=== PATIENT | male | born 1975 | race Two or more races ===

== ENCOUNTER 2023-11-04 08:09 | Inpatient (IN) | payer MEDICAID, OTHER ==
[~2023-11-04] VITALS: Ht 177.8 cm; Wt 72.7 kg
[2023-11-04 08:39] LABS: Basophils # (auto) 0 10 ^3/uL (0-0.2); Basophils % (auto) 0.4 % (0.0-2.0); Eosinophils # (auto) 0.1 10 ^3/uL (0-0.8); Eosinophils % (auto) 0.9 % (0.0-7.0); Hemoglobin 11.1 g/dL (13.5-17.5); Lymphocytes # (auto) 1.4 10 ^3/uL (0.4-5.4); Mean Corpuscular Volume 78.3 fL (80.0-100.0); White Blood Cell 9.3 10^3/uL (4.4-10.8)
[2023-11-04 08:42] LABS: Hematocrit 35.2 % (41.0-53.0); Lymphocytes % (auto) 15.3 % (10.0-50.0); Mean Corpuscular Hemoglobin 24.7 pg (28.0-32.0); Mean Corpuscular Hgb Conc. 31.6 g/dL (32.0-36.0); Monocytes # (auto) 0.7 10 ^3/uL (0-1.3); Neutrophils % (auto) 75.4 % (37.0-80.0)
[2023-11-04 08:54] LABS: INR 1.04 (0.9-1.15); Partial Thromboplastin Time 25.4 SEC (24.5-34.5); Prothrombin Time 10.9 sec (9.3-11.8)
[2023-11-04 08:56] LABS: Alanine Aminotransferase 23 U/L (7-40); Alkaline Phosphatase 92 U/L (46-116); Anion Gap 7 (5-15); Aspartate Aminotransferase 16 U/L (13-40); BUN/Creatinine Ratio 22.5 (10.0-20.0); Blood Urea Nitrogen 16 mg/dL (9-23); Calcium 8.9 mg/dL (8.5-10.1); Carbon Dioxide 27 mmol/L (20-30); Chloride 109 mmol/L (98-107); Glucose 92 mg/dL (74-106); Sodium 143 mmol/L (136-145)
[2023-11-04 08:57] LABS: Bilirubin, Total 0.4 mg/dL (0.2-1.0); Total Protein 6.8 g/dL (5.7-8.2)
[2023-11-04 09:11] LABS: Urine Bacteria NONE SEEN /hpf (None Seen); Urine Blood TRACE /uL (Negative); Urine Clarity Clear (Clear); Urine Color Colorless (Yellow); Urine Mucus FEW (None Seen); Urine Protein, UAD 1+ (Negative); Urine Specific Gravity 1.018 (1.001-1.035); Urine Urobilinogen Normal (Negative); Urine WBC 1 /hpf (0 - 3); Urine pH 5.5 (5.0-8.0)
[2023-11-04 09:19] LABS: Amphetamine Screen, Urine Neg (NEGATIVE); Barbiturate Scree,Urine Neg (NEGATIVE); Benzodiazephine Screen, Urine Neg (NEGATIVE); Cannabinoid Screen, Urine Neg (NEGATIVE); Cocaine Screen, Urine Neg (NEGATIVE); Opiate Scree,Urine Neg (NEGATIVE); Phencyclidine Screen, Urine Neg (NEGATIVE)
[2023-11-04] MEDS ORDERED: ACETAMINOPHEN 325 MG TAB PO PRN (11:15)
[2023-11-04] MEDS ORDERED: ONDANSETRON HCL 4 MG/2 ML VIAL IV PRN (11:15)
[2023-11-04] MEDS ORDERED: MORPHINE SULFATE 4 MG/ML SYR/VIAL IV PRN (11:15)
[2023-11-04] MEDS ORDERED: NITROGLYCERIN 0.4 MG SL TAB SL PRN (11:15)
[2023-11-04] MEDS: BUPRENORPHINE -NALOXONE 8-2mg SL TAB SL ONE (12:13)
[2023-11-04] MEDS: ENOXAPARIN SOD 100 MG/1 ML SYRINGE SC SCH (13:18)
[2023-11-04] MEDS: SODIUM CHLORIDE 0.9% 1,000 ML IV SCH (14:14)
[2023-11-04 16:15] LABS: Phosphorus 3.7 mg/dL (2.4-5.1)
[2023-11-04 17:53] LABS: Magnesium 2.1 mg/dL (1.6-2.6)
[2023-11-04] MEDS: ATORVASTATIN 20 MG TAB PO SCH (22:00)
[2023-11-04] MEDS ORDERED: ENOXAPARIN SOD 100 MG/1 ML SYRINGE SC SCH (22:00)
[2023-11-05] MEDS: METOPROLOL TARTRATE 25 MG TAB PO SCH (00:01)
[2023-11-05] MEDS: HYDROcodone-ACET 5/325MG TAB PO PRN (00:02)
[2023-11-05 08:48] VITALS: PULSE 77; RESP 16; O2SAT 100
[2023-11-05 09:08] LABS: Basophils # (auto) 0 10 ^3/uL (0-0.2); Basophils % (auto) 0.4 % (0.0-2.0); Eosinophils # (auto) 0.1 10 ^3/uL (0-0.8); Eosinophils % (auto) 1.1 % (0.0-7.0); Hematocrit 37.8 % (41.0-53.0); Hemoglobin 11.9 g/dL (13.5-17.5); Lymphocytes # (auto) 1.3 10 ^3/uL (0.4-5.4); Lymphocytes % (auto) 19.8 % (10.0-50.0); Mean Corpuscular Hemoglobin 24.8 pg (28.0-32.0); Mean Corpuscular Hgb Conc. 31.5 g/dL (32.0-36.0); Mean Corpuscular Volume 78.7 fL (80.0-100.0); Monocytes # (auto) 0.5 10 ^3/uL (0-1.3); Monocytes % (auto) 7.3 % (0.0-12.0); Neutrophils # (auto) 4.8 10 ^3/uL (1.6-8.6); Neutrophils % (auto) 71.4 % (37.0-80.0); Red Blood Cells 4.81 10^6/uL (4.5-5.90); Red Cell Distribution Width 15.1 % (11.8-14.3); White Blood Cell 6.7 10^3/uL (4.4-10.8)
[2023-11-05 09:23] LABS: Alanine Aminotransferase 24 U/L (7-40); Albumin 4.3 g/dL (3.2-4.8); Alkaline Phosphatase 95 U/L (46-116); Anion Gap 6 (5-15); Aspartate Aminotransferase 18 U/L (13-40); BUN/Creatinine Ratio 20.5 (10.0-20.0); Blood Urea Nitrogen 16 mg/dL (9-23); Calcium 9.3 mg/dL (8.5-10.1); Carbon Dioxide 28 mmol/L (20-30); Chloride 108 mmol/L (98-107); Glucose 84 mg/dL (74-106); LDL Cholesterol 53 mg/dL (< 100); Sodium 142 mmol/L (136-145); Triglycerides 48 mg/dL (< 150)
[2023-11-05 09:24] LABS: Bilirubin, Total 0.6 mg/dL (0.2-1.0); Cholesterol 108 mg/dL (< 200); HDL Cholesterol 48 mg/dL (40-59); Total Protein 7.5 g/dL (5.7-8.2)
[2023-11-05] MEDS: ASPirin 81 mg TAB PO SCH (09:47)
[2023-11-05] MEDS: DOCUSATE SOD 100 MG CAP PO SCH (09:48)
[2023-11-05] MEDS: ALPRAZolam 0.25 MG TAB PO PRN (10:52)
[2023-11-05 20:15] VITALS: PULSE 104; RESP 16; O2SAT 96
[2023-11-06 08:30] VITALS: RESP 16; O2SAT 98
[2023-11-06 11:56] VITALS: TEMP 98.1
[2023-11-06 16:00] VITALS: BP 122/86; PULSE 91; RESP 15; O2SAT 95
== END 2023-11-06 16:31 | disposition home or self-care (01) | DRG 203 ==
LOC: ER 08:09 → TELE 11:18
PROVIDERS: ADMIT Nurse Practitioner Family; ATTEND Nurse Practitioner Acute Care
DX: R07.89 Other chest pain (principal); R45.851 Suicidal ideations; D64.9 Anemia, unspecified; F41.9 Anxiety disorder, unspecified; D72.829 Elevated white blood cell count, unspecified
CPT/HCPCS: 36415; 71045; 80053; 80061; 80307; 80320; 81001; 83735; 83880; 84100; 84484; 85025; 85379; 85610; 85730; 93005; G0378